=== PATIENT | male | born 1955 | race Caucasian/White ===

== ENCOUNTER 2016-03-26 08:23 | Emergency (ER) | payer OTHER ==
[~2016-03-26] VITALS: Ht 170.2 cm; Wt 119.2 kg
[~2016-03-26 08:23] MED LIST: ASPIR 8181 M1 PO
[2016-03-26 08:52] LABS: HEMATOCRIT 44.6 % (38.0-50.0); MCH 30.7 PG (29.0-34.0); MCHC 35.4 G/DL (30.0-36.0); MCV 86.6 FL (86-99); MEAN PLAT.VOLUME 10.1 uM^3 (9.0-12.4); PLATELET COUNT 204 K/uL (156-360); RBC DIS.WIDTH-CV 12.7 % (11.8-14.6); RED BLOOD COUNT 5.15 M/uL (4.00-5.50); WHITE BLOOD COUNT 8.9 K/uL (4.1-10.2)
[2016-03-26 09:00] LABS: CHLORIDE 102 mEq/L (99-109); POTASSIUM 4.4 mEq/L (3.7-5.4); SODIUM 136 mEq/L (136-147)
[2016-03-26 09:02] LABS: GLUCOSE 230 mg/dL (70-99)
[2016-03-26 09:03] LABS: ANION GAP 8 MEQ/L (2-14)
[2016-03-26 09:06] LABS: GFR ESTIMATE (CALCULATED) > 59 mL/min/
[2016-03-26 09:07] LABS: UREA NITROGEN (BUN) 14 mg/dL (9-23)
[2016-03-26 09:14] LABS: ADD MIUA? YES; BILIRUBIN NEGATIVE; BLOOD LARGE; COLOR YELLOW ((YELLOW)); GLUCOSE (STRIP) 500; KETONES NEGATIVE; LEUKOCYTES NEGATIVE; NITRITE NEGATIVE; PH, URINE 6.5 (5-8); PROTEIN (STRIP) TRACE; SPECIFIC GRAVITY 1.016 (1.000-1.030); UROBILINOGEN 0.2 MG/DL (0.2-1.0)
[2016-03-26 09:24] LABS: BACTERIA NONE SEEN; CASTS NONE SEEN /LPF; CRYSTALS NONE SEEN; EPITHELIAL CELLS RARE; MUCUS NONE SEEN; PATHOLOGICAL CAST NONE SEEN; RED BLOOD CELLS TNTC /HPF (0-5); SMALL ROUND CELL NONE SEEN; UCUL ADDED? NO; WHITE BLOOD CELLS 0-5 /HPF (0-5); YEAST-LIKE CELL NONE SEEN
[2016-03-26] MEDS ORDERED: NORCO 5/3251 TABLET PO (13:10)
[2016-03-26 13:29] VITALS: BP 154/95
== END 2016-03-26 13:30 | disposition home or self-care (01) ==
LOC: EME 08:23
DX: N23 Unspecified renal colic (principal); R39.15 Urgency of urination; R35.0 Frequency of micturition; R11.0 Nausea; Z87.442 Personal history of urinary calculi; Z79.82 Long term (current) use of aspirin
CPT/HCPCS: 74176; 80048; 81003; 85027; 99281; 99283; J1885

== ENCOUNTER 2017-06-03 12:58 | Emergency (ER) | payer OTHER ==
[~2017-06-03] VITALS: Ht 170.2 cm; Wt 119.7 kg
[~2017-06-03 12:58] MED LIST changes: +NORCO 5/3251 TABLET PO
[2017-06-03] MEDS ORDERED: KEFLEX500 MG PO (17:29)
[2017-06-03] MEDS ORDERED: NORCO 5/3251 TABLET PO (17:29)
[2017-06-03 18:09] VITALS: BP 146/89
== END 2017-06-03 18:23 | disposition home or self-care (01) ==
LOC: EME 12:58
DX: S62.631B Displaced fracture of distal phalanx of left index finger, initial encounter for open fracture (principal); S62.633B Displaced fracture of distal phalanx of left middle finger, initial encounter for open fracture; S62.635B Displaced fracture of distal phalanx of left ring finger, initial encounter for open fracture; W31.89XA Contact with other specified machinery, initial encounter; Z23 Encounter for immunization; Z79.82 Long term (current) use of aspirin
CPT/HCPCS: 73130; 99281; 99285; J0295; J2270; J7050